=== PATIENT | female | born 1945 | race Caucasian/White ===

== ENCOUNTER 2019-11-02 11:49 | Outpatient (CLI) | payer MEDICARE, BC, SELFPAY ==
--- NOTE | ~2019-11-02 | XR_ITS ---
EXAMINATION: XR shoulder RT min 2V, XR clavicle RT EXAM DATE: 11/02/2019 12:09 INDICATION: No known recent injury provided at this time. Pain of the right shoulder. TECHNIQUE: The following right shoulder projections obtained: frontal projection with internal rotati on, frontal projection with external rotation, Grashey, and axillary (4+ views). 2 frontal projectio ns right clavicle with different degrees of angulation. FINDINGS: There is healed right humeral neck fracture. There is flattening of the articular surface o f the humeral head, probably sequela from old avascular necrosis. There is mild to moderate glenohume ral arthritis which could be secondary to the avascular necrosis. There is mild to moderate acromiocl avicular joint primary osteoarthritis. There are no acute fractures or dislocations identified. Ther e is no subcutaneous gas. The soft tissue is unremarkable. There are no radiopaque foreign bodies. IMPRESSION: 1. 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 2. Mild to moderate osteoarthritis. Reviewed, dictated and finalized at location B. IMPRESSION: 1. Old right humeral neck fracture, flattened humeral head probably chronic av ascular necrosis. 2. Mild to moderate osteoarthritis.
== END 2019-11-02 11:50 | disposition home or self-care (01) ==
LOC: ANHIMG 11:55
PROVIDERS: PCP Internal Medicine; Visit Provider Internal Medicine
DX: M89.8X1 Other specified disorders of bone, shoulder (principal); M19.011 Primary osteoarthritis, right shoulder
CPT/HCPCS: 73000; 73030

== ENCOUNTER 2020-04-23 09:04 | Outpatient (CLI) | payer MEDICARE, BC, SELFPAY ==
[2020-04-23 09:26] LABS: Basophils Absolute Auto 0.1 K/mm3 (0.0-0.1); Eosinophils Absolute Auto 0.2 K/mm3 (0-0.3); Hematocrit 40.3 % (37.0-47.0); Hemoglobin 13.3 g/dL (12.0-15.0); Immature Granulocyte Absolute 0.02 K/mm3 (0.00-0.031); Immature Granulocyte Percent A 0.4 % (0-0.5); Lymphocytes Absolute Auto 1.73 K/mm3 (0.9-3.2); Mean Corpuscular Hemoglobin 31.9 pg (26-34); Mean Corpuscular Volume 96.6 fl (80-100); Mean Platelet Volume 8.8 fl (7.4-10.4); Monocytes Absolute Auto 0.5 K/mm3 (0.1-0.6); Monocytes Percent Auto 9.9 % (2.6-8.5); Neutrophils Absolute Auto 2.8 K/mm3 (1.3-6.7); Neutrophils Percent Auto 52.7 % (45.5-73.1); Platelet Count Result 247 k/mm3 (150-375); Red Blood Count 4.17 M/mm3 (4.2-5.4); Red Cell Distribution Width 13.2 % (11.5-14.5); White Blood Count 5.3 K/mm3 (4.5-10.0)
[2020-04-23 09:40] LABS: Add Urine Microscopic? YES; Appearance Urine Clear (Clear); Bilirubin Urine Negative (Negative); Blood Urine Negative (Negative); Color Urine Yellow (Yellow); Glucose Urine UA Negative (Negative); Ketones Urine Negative (Negative); Leukocyte Esterase Ur 1+ LEU/UL (NEGATIVE); Mucus Urine Rare /lpf; Nitrate Urine Negative (Negative); Protein Urine 1+ mg/dL (Negative); Specific Grav Ur 1.019 (1.001-1.035); Squamous Epithelial Cell Urine Occasional /hpf (Few); Urobilinogen Urine Negative mg/dL (<2.0)
[2020-04-23 09:56] LABS: Alanine Aminotransferase 20 U/L (4-35); Albumin Level 3.9 g/dL (3.5-5.1); Alkaline Phosphatase 66 U/L (38-126); Anion Gap 4 mmol/L (8-16); Aspartate Amino Transferase 28 U/L (14-36); Bilirubin,Total 0.6 mg/dL (0.2-1.3); Blood Urea Nitrogen 14 mg/dL (7-17); Calcium 8.7 mg/dL (8.4-10.2); Carbon Dioxide 32 mmol/L (22-30); Chloride 101 mmol/L (98-107); Cholesterol 239 mg/dL (0-200); Estimated Glomerular Filt Rate > 60; Glucose 90 mg/dL (65-105); HDL Direct 86 mg/dL; Potassium 4.3 mmol/L (3.4-5.0); Sodium 137 mmol/L (137-145); Triglycerides 95 mg/dL (<150)
[2020-04-23 10:07] LABS: LDL Cholesterol Direct 109 mg/dL
[2020-04-23 10:44] LABS: Vitamin D 25 Hydroxy 44.3 ng/mL
== END 2020-04-23 09:05 | disposition home or self-care (01) ==
PROVIDERS: PCP Internal Medicine; Visit Provider Internal Medicine
DX: E55.9 Vitamin D deficiency, unspecified (principal); F32.0 Major depressive disorder, single episode, mild; Z79.899 Other long term (current) drug therapy; E78.2 Mixed hyperlipidemia
CPT/HCPCS: 36415; 80053; 80061; 81001; 82306; 84443; 85025

== ENCOUNTER 2020-05-07 11:47 | Outpatient (CLI) | payer MEDICARE, BC, SELFPAY ==
[2020-05-07 12:30] LABS: Add Urine Microscopic? YES; Appearance Urine Clear (Clear); Bacteria Urine Trace /hpf; Bilirubin Urine Negative (Negative); Color Urine Yellow (Yellow); Glucose Urine UA Negative (Negative); Ketones Urine Trace mg/dL (Negative); Leukocyte Esterase Ur 2+ LEU/UL (Negative); Mucus Urine Few /lpf; Nitrate Urine Negative (Negative); Protein Urine 1+ mg/dL (Negative); Specific Grav Ur 1.017 (1.001-1.035); Squamous Epithelial Cell Urine Occasional /hpf (Few); WBC Urine 31-50 /hpf
[2020-05-07 12:31] LABS: Blood Urine Negative (Negative)
== END 2020-05-07 11:48 | disposition home or self-care (01) ==
LOC: ANHLAB 11:49
PROVIDERS: PCP Internal Medicine; Visit Provider Internal Medicine
DX: R31.9 Hematuria, unspecified (principal)
CPT/HCPCS: 81001; 87086; 87088

== ENCOUNTER 2020-05-14 11:32 | Outpatient (CLI) | payer MEDICARE, BC, SELFPAY ==
[2020-05-14 12:18] LABS: Alanine Aminotransferase 31 U/L (4-35); Albumin Level 4.2 g/dL (3.5-5.1); Alkaline Phosphatase 82 U/L (38-126); Anion Gap 5 mmol/L (8-16); Aspartate Amino Transferase 38 U/L (14-36); Bilirubin,Total 0.6 mg/dL (0.2-1.3); Blood Urea Nitrogen 12 mg/dL (7-17); Calcium 8.9 mg/dL (8.4-10.2); Carbon Dioxide 28 mmol/L (22-30); Chloride 105 mmol/L (98-107); Estimated Glomerular Filt Rate > 60; Glucose 90 mg/dL (65-105); Sodium 138 mmol/L (137-145)
[2020-05-14 12:39] LABS: Add Urine Microscopic? YES; Appearance Urine Clear (Clear); Bilirubin Urine Negative (Negative); Blood Urine Negative (Negative); Color Urine Amber (Yellow); Glucose Urine UA Negative (Negative); Ketones Urine Trace mg/dL (Negative); Leukocyte Esterase Ur 1+ LEU/UL (Negative); Mucus Urine Heavy /lpf; Nitrate Urine Negative (Negative); Protein Urine 1+ mg/dL (Negative); Specific Grav Ur 1.024 (1.001-1.035); Squamous Epithelial Cell Urine Few /hpf (Few); Transitional Epi Cells Urine Rare /hpf (None Seen)
== END 2020-05-14 11:33 | disposition home or self-care (01) ==
PROVIDERS: PCP Internal Medicine; Visit Provider Internal Medicine
DX: R31.29 Other microscopic hematuria (principal)
CPT/HCPCS: 36415; 80053; 81001

== ENCOUNTER 2020-06-08 13:27 | Outpatient (CLI) | payer MEDICARE, BC, SELFPAY ==
--- NOTE | ~2020-06-08 | XR_ITS ---
XR abdomen/kub 1V 06/08/2020 13:52 INDICATION: Microhematuria TECHNIQUE: KUB COMPARISON: CT dated 06/08/2020 FINDINGS: Bowel gas pattern is normal. There is no evidence of free air, mass, organomegaly, ascites or obstruction. No abnormal calculi are seen. The bones appear intact. There is levoscoliosis. IMPRESSION: 1: No acute abdominal abnormality identified. Reviewed, dictated and finalized at location A. K PARTS FABRICATOR
--- NOTE | ~2020-06-08 | CT_ITS ---
EXAMINATION: CT abdomen pelvis wo/w con DATE: 06/08/2020 14:20 INDICATION: Macroscopic hematuria TECHNIQUE: Computed tomography (CT) of the abdomen and pelvis was performed without intravenous contr ast. The dose-length product was 1599.82 mGy-cm. Automated exposure control and iterative reconstruct ion technique were employed. COMPARISON: KUB dated 06/08/2020. FINDINGS: Basilar dependent atelectasis. Heart size normal. The liver, spleen, pancreas and adrenal g lands and right kidney are unremarkable. There are parapelvic cyst of the left kidney. Ureters are no rmal in course and caliber. Bladder is unremarkable. Mild atherosclerosis without aneurysm. No lympha denopathy. No renal stones. Gallbladder is present. Colonic diverticulosis without evidence for diver ticulitis. There is acute sigmoid diverticulitis without evidence for perforation or abscess. Nonobstructive bow el gas pattern. There are is thoracic and lumbar spondylosis with grade 1 degenerative spondylolisthe sis at L4-5 and L5-S1. IMPRESSION: 1. Acute uncomplicated sigmoid diverticulitis. Dr. Singh discussed with Dr. Maxwell Vu MD at 06/08/2020 16:20 SALON LEADER. Reviewed, dictated and finalized at location A. N LEADER
== END 2020-06-08 13:28 | disposition home or self-care (01) ==
LOC: ANHIMG 13:30
PROVIDERS: PCP Internal Medicine; Visit Provider Urology
DX: R31.29 Other microscopic hematuria (principal); K57.32 Diverticulitis of large intestine without perforation or abscess without bleeding
CPT/HCPCS: 74018; 74178; Q9967

== ENCOUNTER 2020-09-07 10:37 | Outpatient (CLI) | payer MEDICARE, BC, SELFPAY ==
[2020-09-07 11:05] LABS: Hematocrit 40.7 % (37.0-47.0); Hemoglobin 13.2 g/dL (12.0-15.0); Mean Corpuscular HGB Conc 32.4 g/dl (32-36); Mean Corpuscular Hemoglobin 30.6 pg (26-34); Mean Corpuscular Volume 94.4 fl (80-100); Mean Platelet Volume 9.3 fl (7.4-10.4); Platelet Count Result 246 k/mm3 (150-375); Red Blood Count 4.31 M/mm3 (4.2-5.4); Red Cell Distribution Width 14.2 % (11.5-14.5); White Blood Count 5.7 K/mm3 (4.5-10.0)
[2020-09-07 11:11] LABS: Add Urine Microscopic? YES; Appearance Urine Clear (Clear); Bilirubin Urine Negative (Negative); Blood Urine Negative (Negative); Color Urine Straw (Yellow); Glucose Urine UA Negative (Negative); Ketones Urine Negative (Negative); Leukocyte Esterase Ur 1+ LEU/UL (NEGATIVE); Mucus Urine Rare /lpf; Nitrate Urine Negative (Negative); Protein Urine Negative (Negative); Specific Grav Ur 1.008 (1.001-1.035); Squamous Epithelial Cell Urine Rare /hpf (Few); Urobilinogen Urine Negative mg/dL (<2.0)
[2020-09-07 11:22] LABS: Alanine Aminotransferase 27 U/L (4-35); Albumin Level 4.1 g/dL (3.5-5.1); Alkaline Phosphatase 60 U/L (38-126); Anion Gap 4 mmol/L (8-16); Aspartate Amino Transferase 33 U/L (14-36); Bilirubin,Total 0.4 mg/dL (0.2-1.3); Blood Urea Nitrogen 17 mg/dL (7-17); Calcium 9.5 mg/dL (8.4-10.2); Carbon Dioxide 32 mmol/L (22-30); Chloride 103 mmol/L (98-107); Estimated Glomerular Filt Rate > 60; Glucose 89 mg/dL (65-105); Potassium 4.4 mmol/L (3.4-5.0); Sodium 139 mmol/L (137-145)
== END 2020-09-07 10:38 | disposition home or self-care (01) ==
LOC: ANHLAB 10:39
PROVIDERS: PCP Internal Medicine; Visit Provider Internal Medicine
DX: R31.29 Other microscopic hematuria (principal)
CPT/HCPCS: 36415; 80053; 81001; 85027

== ENCOUNTER 2020-11-02 07:28 | Outpatient (CLI) | payer MEDICARE, BC, SELFPAY ==
--- NOTE | ~2020-11-02 | US_ITS ---
EXAMINATION: US right upper quadrant DATE: 11/02/2020 08:29 INDICATION: Epigastric pain TECHNIQUE: Multiple grayscale and Doppler ultrasound images of the abdomen were obtained. COMPARISON: None FINDINGS: The pancreatic head and body are normal in appearance. The pancreatic tail is not clearly visualized . Liver has normal echogenicity and contour, with a smooth surface. No liver lesion identified. No in trahepatic biliary duct dilation suspected. Portal venous flow was seen in the hepatopetal, normal di rection and has normal Doppler waveform. The gallbladder is normal in appearance. There is no cholel ithiasis. The common bile duct measures 4-5 mm, which is normal. Sonographic Mccann sign was reported as negative by the test desk operator. Visualized proximal inferior vena cava is normal. Visualized portio n of the right kidney demonstrates normal contour and echogenicity with no hydronephrosis. IMPRESSION: 1. Normal right upper quadrant ultrasound. Reviewed, dictated and finalized at location A.
== END 2020-11-02 07:29 | disposition home or self-care (01) ==
LOC: ANHIMG 07:33
PROVIDERS: PCP Internal Medicine; Visit Provider Internal Medicine Gastroenterology
DX: R10.13 Epigastric pain (principal)
CPT/HCPCS: 76705

== ENCOUNTER 2020-12-18 11:00 | Outpatient (CLI) | payer MEDICARE, BC, SELFPAY ==
--- NOTE | 2020-12-18 | ECG_ITS ---
Measurements Intervals [place] Rate: 59 P: 71 WY: 154 QRS: 20 QRSD: 101 T: 42 QT: 421 QTc: 419 Interpretive Statements SINUS BRADYCARDIA BORDERLINE ECG Electronically Signed On 12-18-2020 11:50:22 CDT by Pedro Nails D.O.
== END 2020-12-18 11:01 | disposition home or self-care (01) ==
LOC: ANHCARD 11:04
PROVIDERS: PCP Internal Medicine; Visit Provider Orthopaedic Surgery
DX: Z01.818 Encounter for other preprocedural examination (principal); R94.31 Abnormal electrocardiogram [ECG] [EKG]
CPT/HCPCS: 93005

== ENCOUNTER 2021-09-20 07:27 | Outpatient (CLI) | payer MEDICARE, BC, SELFPAY ==
[2021-09-20 08:14] LABS: Basophils Absolute Auto 0.1 K/mm3 (0.0-0.1); Basophils Percent Auto 1.1 % (0.2-1.2); Eosinophils Absolute Auto 0.3 K/mm3 (0-0.3); Eosinophils Percent Auto 5.2 % (0-4.4); Hematocrit 40.8 % (37.0-47.0); Immature Granulocyte Absolute 0.01 K/mm3 (0.00-0.031); Immature Granulocyte Percent A 0.2 % (0-0.5); Lymphocytes Absolute Auto 1.86 K/mm3 (0.9-3.2); Lymphocytes Percent Auto 33.5 % (18.3-44.2); Mean Corpuscular HGB Conc 31.9 g/dl (32-36); Mean Corpuscular Hemoglobin 30.7 pg (26-34); Mean Corpuscular Volume 96.5 fl (80-100); Mean Platelet Volume 9.2 fl (7.4-10.4); Monocytes Absolute Auto 0.6 K/mm3 (0.1-0.6); Monocytes Percent Auto 11.2 % (2.6-8.5); Neutrophils Absolute Auto 2.7 K/mm3 (1.3-6.7); Neutrophils Percent Auto 48.8 % (45.5-73.1); Platelet Count Result 277 k/mm3 (150-375); Red Blood Count 4.23 M/mm3 (4.2-5.4); Red Cell Distribution Width 14.1 % (11.5-14.5); White Blood Count 5.6 K/mm3 (4.5-10.0)
[2021-09-20 08:24] LABS: Creatinine Urine 120.1 mg/dL
[2021-09-20 08:27] LABS: Alanine Aminotransferase 22 U/L (6-35); Albumin Level 4.3 g/dL (3.5-5.1); Alkaline Phosphatase 74 U/L (38-126); Anion Gap 4 mmol/L (8-16); Aspartate Amino Transferase 28 U/L (14-36); Bilirubin,Total 0.3 mg/dL (0.2-1.3); Blood Urea Nitrogen 17 mg/dL (7-17); Calcium 8.3 mg/dL (8.4-10.2); Carbon Dioxide 28 mmol/L (22-30); Chloride 103 mmol/L (98-107); Cholesterol 226 mg/dL (0-200); Estimated Glomerular Filt Rate > 60; Glucose 87 mg/dL (65-110); HDL Direct 80 mg/dL; Potassium 4.4 mmol/L (3.4-5.0); Sodium 135 mmol/L (137-145); Triglycerides 84 mg/dL (<150)
[2021-09-20 08:28] LABS: MALB Creatinine Ratio 5.6 mg/g (0-30); Microalbumin Urine Random 6.7 mg/L (0-16.7)
[2021-09-20 08:38] LABS: LDL Cholesterol Direct 93 mg/dL
[2021-09-20 08:57] LABS: Vitamin D 25 Hydroxy 42.2 ng/mL
== END 2021-09-20 07:28 | disposition home or self-care (01) ==
LOC: ANHLAB 07:31
PROVIDERS: PCP Internal Medicine; Visit Provider Internal Medicine
DX: E55.9 Vitamin D deficiency, unspecified (principal); F32.0 Major depressive disorder, single episode, mild; K58.0 Irritable bowel syndrome with diarrhea; M19.90 Unspecified osteoarthritis, unspecified site; E78.2 Mixed hyperlipidemia; R31.9 Hematuria, unspecified
CPT/HCPCS: 36415; 80053; 80061; 82043; 82306; 84443; 85025

== ENCOUNTER → 2021-09-20 13:14 | Outpatient (CLI) | payer MEDICARE, BC, SELFPAY ==
--- NOTE | ~2021-09-20 | US_ITS ---
US soft tissue chest 09/20/2021 13:32 Indication: Subcutaneous palpable nodule. Possible lipoma. No pain. Procedure: High-resolution Limited ultrasound of the left upper chest in the area of palpable concern . Comparison: No prior studies for comparison. Findings: Normal heterogeneous soft tissue of the chest wall. No discrete solid or cystic masses. Impression: 1: Normal limited left upper chest soft tissue ultrasound without discrete mass. Reviewed, dictated and finalized at location B. Impression: 1: Normal limited left upper chest soft tissue ultrasound without discrete mass .
== END ==
PROVIDERS: PCP Internal Medicine
DX: R22.9 Localized swelling, mass and lump, unspecified (principal)
CPT/HCPCS: 76604

== ENCOUNTER 2021-11-01 10:16 | Outpatient (CLI) | payer MEDICARE, BC, SELFPAY ==
[2021-11-01 12:14] LABS: Free T4 Free Thyroxine 0.84 ng/mL (0.78-2.19)
== END 2021-11-01 10:17 | disposition home or self-care (01) ==
LOC: ANHLAB 10:21
PROVIDERS: PCP Internal Medicine; Visit Provider Internal Medicine
DX: E78.2 Mixed hyperlipidemia (principal); R79.89 Other specified abnormal findings of blood chemistry
CPT/HCPCS: 36415; 84439; 84443

== ENCOUNTER → 2022-10-22 14:34 | Outpatient (CLI) | payer MEDICARE, BC, SELFPAY ==
--- NOTE | ~2022-10-22 | XR_ITS ---
[[id number] ] INDICATION: Right rib pain after recent fall TECHNIQUE: Frontal projection of the upper right ribs, frontal projection of the lower right ribs, ob lique projection of all the right ribs, frontal inspiratory chest x-ray for interpretation. FINDINGS: There are nondisplaced right ninth and 10th rib fractures. There are no soft tissue abnorma lity seen. The lungs are clear. There is dextroscoliosis of the thoracic spine. There is glenohumer al joint osteoarthritis on the right with remodeling of the humeral head. IMPRESSION: 1: Nondisplaced right ninth and 10th rib fractures. Reviewed, dictated and finalized at location L.
--- NOTE | ~2022-10-22 | CT_ITS ---
EXAMINATION: CT abdomen pelvis wo con DATE: 10/22/2022 15:04 INDICATION: Right upper quadrant abdominal tenderness TECHNIQUE: Computed tomography (CT) of the abdomen and pelvis was performed without intravenous contr ast. Automated exposure control and iterative reconstruction technique were employed. The dose-length product was 604.90 mGy-cm. COMPARISON: 06/08/2020 FINDINGS: 2.5 cm cystic lesion deep in the right breast. Small right pleural effusion. Mild dependent atelectas is in both lower lobes. 7 x 4 mm nodular opacity in the right middle lobe. Heart size is normal. No p ericardial effusion. Liver, spleen, pancreas, right kidney and bilateral adrenal glands are normal. A gain seen are multiple parapelvic cysts at the left kidney. There is subtle gradient of increasing de pendent attenuation in the otherwise normal appearing gallbladder most likely representing sludge wit h no gallbladder wall thickening or pericholecystic inflammation presenting to suggest acute cholecys titis. There are few sigmoid diverticula without adjacent from 3 change to suggest diverticular colit is. No bowel obstruction. Bladder is normal. The uterus is not identified and has likely been surgica lly resected. Small fat-containing right inguinal hernia. No free intraperitoneal gas or fluid. No pa thologically enlarged abdominal or pelvic lymphadenopathy. Moderate thoracolumbar levoscoliosis with severe spondylosis. IMPRESSION: 1. No acute intra-abdominal/pelvic process. 2. Indeterminate 2.5 cm cystic lesion at the right breast. Correlate with clinical/surgical history a nd could consider further evaluation with breast ultrasound as clinically indicated. 3. Small fat-containing right inguinal hernia. Reviewed, dictated and finalized at location A. IMPRESSION: 1. No acute intra-abdominal/pelvic process. 2. Indeterminate 2.5 cm cystic lesion at the right breast. Correlate with clini irma/surgical history and could consider further evaluation with breast ultrasou nd as clinically indicated. 3. Small fat-containing right inguinal hernia.
== END ==
PROVIDERS: PCP Family Medicine; Visit Provider Family Medicine
DX: R10.811 Right upper quadrant abdominal tenderness (principal); S22.41XA Multiple fractures of ribs, right side, initial encounter for closed fracture; X58.XXXA Exposure to other specified factors, initial encounter; K40.90 Unilateral inguinal hernia, without obstruction or gangrene, not specified as recurrent
CPT/HCPCS: 71101; 74176